=== PATIENT | male | born 1990 | race African-American/Black ===

== ENCOUNTER 2018-05-14 02:46 | Emergency (ER) | payer MEDICAID ==
[~2018-05-14] VITALS: Ht 185.4 cm; Wt 66.8 kg
[~2018-05-14 02:46] MED LIST: CLIN-96 PO
[2018-05-14 02:49] VITALS: BP 143/56
[2018-05-14] MEDS ORDERED: TETRACAINE 0.5% 5 ML OPHTHALMIC DROPS LEFTEYE ONE (03:00)
== END 2018-05-14 03:44 | disposition home or self-care (01) ==
LOC: ER 02:46
DX: H57.12 Ocular pain, left eye (principal); H53.8 Other visual disturbances; H57.89 Other specified disorders of eye and adnexa; H53.149 Visual discomfort, unspecified; R51 Headache; F12.90 Cannabis use, unspecified, uncomplicated; J45.909 Unspecified asthma, uncomplicated; F17.200 Nicotine dependence, unspecified, uncomplicated; Z79.899 Other long term (current) drug therapy
CPT/HCPCS: 99282

== ENCOUNTER 2018-06-24 07:07 | Emergency (ER) | payer MEDICAID ==
[~2018-06-24] VITALS: Ht 185.4 cm; Wt 49.0 kg
[2018-06-24 07:11] VITALS: BP 134/100
== END 2018-06-24 07:53 | disposition home or self-care (01) ==
LOC: ER 07:07
DX: M25.521 Pain in right elbow (principal); J45.909 Unspecified asthma, uncomplicated; F12.90 Cannabis use, unspecified, uncomplicated; Z79.899 Other long term (current) drug therapy
CPT/HCPCS: 99281

== ENCOUNTER 2019-10-24 11:38 | Emergency (ER) | payer MEDICAID, OTHER ==
[~2019-10-24] VITALS: Ht 185.4 cm; Wt 66.8 kg
[~2019-10-24 11:38] MED LIST changes: -CLIN-96 PO; +CLIN-97 PO
[2019-10-24 13:00] LABS: BASOPHILS # (AUTO) 0.1 X10'3 (0-0.2); BASOPHILS % (AUTO) 0.5 % (0-1); EOSINOPHILS % (AUTO) 0.3 % (0-6); HEMATOCRIT 44.2 % (42.0-52.0); HEMOGLOBIN 14.9 g/dl (14.0-17.9); LYMPHOCYTES # (AUTO) 1.5 X10'3 (1.1-4.8); MEAN CORPUSCULAR HEMOGLOBIN 34.6 PG (27.0-31.0); MEAN CORPUSCULAR HGB CONC 33.8 g/dL (33.0-36.5); MEAN CORPUSCULAR VOLUME 102.4 FL (78-98); MEAN PLATELET VOLUME 8.6 FL (7.4-10.4); MONOCYTES # (AUTO) 1.1 X10'3 (0-0.9); NEUTROPHILS # (AUTO) 9.8 X10'3 (1.8-7.7); NEUTROPHILS % (AUTO) 78.2 % (42-75); PLATELET COUNT 247 X10'3 (140-440); RED BLOOD COUNT 4.32 X10'6 (4.70-6.10); RED CELL DISTRIBUTION WIDTH 13.4 % (11.5-14.5); WHITE BLOOD COUNT 12.5 X10'3 (4.5-11.0)
[2019-10-24 13:20] LABS: ALANINE AMINOTRANSFERASE 30 U/L (12-78); ALBUMIN/GLOBULIN RATIO 1.1 (1.1-1.5); ALKALINE PHOSPHATASE 60 IU/L (46-116); ANION GAP 12 (8-16); ASPARTATE AMINO TRANSFERASE 32 U/L (10-37); BILIRUBIN,TOTAL 0.5 MG/DL (0.1-1.0); BLOOD UREA NITROGEN 10 MG/DL (7-18); BUN/CREATININE RATIO 14.3 (5.4-32.0); CALCIUM 9.2 MG/DL (8.5-10.1); CHLORIDE 104 MMOL/L (99-107); GLUCOSE 88 MG/DL (70-104); POTASSIUM 3.8 MMOL/L (3.5-5.1); SODIUM 140 MMOL/L (135-145); TOTAL CARBON DIOXIDE 24.5 MMOL/L (24-32); TOTAL PROTEIN 7.8 G/DL (6.4-8.2); eGFR > 90 ML/MIN
[2019-10-24] MEDS ORDERED: ondansetron/PF 4mg/2ml inj IV ONE (14:00)
[2019-10-24] MEDS ORDERED: morphine 4 MG/ML inj SYRINge IV ONE ×2 (14:00→19:30)
--- NOTE | 2019-10-24 17:09 | NUR ---
Called report to TIMOTEO Willis at [facility].
--- NOTE | 2019-10-24 17:21 | NUR ---
Pt able to have a few ice chips per EDI Champagne. Ice chips given. Let pt and his guard know that we have a bed at [facility], but that it is going to be a little bit before we are able to get transport there.
--- NOTE | 2019-10-24 18:41 | NUR ---
CALLED [facility], NOT CURRENTLY AT [facility]. WILL CALL BACK WITH ETA.
[2019-10-24 19:33] VITALS: BP 118/79
--- NOTE | 2019-10-24 19:50 | NUR ---
PATIENT REFUSED MEDICAL TRANSPORT. DID NOT WANT TO WAIT FOR [facility]. PATIENT TRANSPORTED BY [facility].
== END 2019-10-24 19:53 | disposition short-term general hospital (02) ==
LOC: ER 11:39
DX: S02.85XA Fracture of orbit, unspecified, initial encounter for closed fracture (principal); H57.12 Ocular pain, left eye; J45.909 Unspecified asthma, uncomplicated; F12.90 Cannabis use, unspecified, uncomplicated; Z72.89 Other problems related to lifestyle; Z79.899 Other long term (current) drug therapy; X58.XXXA Exposure to other specified factors, initial encounter; Y93.89 Activity, other specified; Y92.89 Other specified places as the place of occurrence of the external cause; Y99.8 Other external cause status
CPT/HCPCS: 36415; 70486; 80053; 85025; 96374; 96375; 96376; 99285; J2270; J2405; 99283; 99284

== ENCOUNTER 2019-11-19 12:03 | Emergency (ER) | payer OTHER ==
[~2019-11-19] VITALS: Ht 185.4 cm; Wt 66.8 kg
[2019-11-19] MEDS ORDERED: famotidine/PF 10 mg/ml inj IV ONE (12:10)
[2019-11-19] MEDS ORDERED: normal saline 1000ML IV soln IVB ONE (12:10)
[2019-11-19] MEDS ORDERED: ondansetron/PF 4mg/2ml inj IV ONE (12:10)
[2019-11-19 12:26] LABS: BASOPHILS # (AUTO) 0.1 X10'3 (0-0.2); BASOPHILS % (AUTO) 0.9 % (0-1); EOSINOPHILS # (AUTO) 0.5 X10'3 (0-0.9); EOSINOPHILS % (AUTO) 4.3 % (0-6); HEMATOCRIT 45.4 % (42.0-52.0); HEMOGLOBIN 15.5 g/dl (14.0-17.9); LYMPHOCYTES # (AUTO) 2.1 X10'3 (1.1-4.8); LYMPHOCYTES % (AUTO) 19.9 % (21-51); MEAN CORPUSCULAR HEMOGLOBIN 33.8 PG (27.0-31.0); MEAN CORPUSCULAR VOLUME 99.2 FL (78-98); MEAN PLATELET VOLUME 7.9 FL (7.4-10.4); MONOCYTES # (AUTO) 1.2 X10'3 (0-0.9); MONOCYTES % (AUTO) 11.6 % (2-12); NEUTROPHILS # (AUTO) 6.6 X10'3 (1.8-7.7); NEUTROPHILS % (AUTO) 63.3 % (42-75); PLATELET COUNT 301 X10'3 (140-440); RED BLOOD COUNT 4.58 X10'6 (4.70-6.10); RED CELL DISTRIBUTION WIDTH 12.7 % (11.5-14.5); WHITE BLOOD COUNT 10.5 X10'3 (4.5-11.0)
[2019-11-19 12:39] LABS: ALANINE AMINOTRANSFERASE 20 U/L (12-78); ALBUMIN/GLOBULIN RATIO 1.2 (1.1-1.5); ALKALINE PHOSPHATASE 53 IU/L (46-116); ANION GAP 8 (8-16); ASPARTATE AMINO TRANSFERASE 15 U/L (10-37); BILIRUBIN,TOTAL 0.7 MG/DL (0.1-1.0); BLOOD UREA NITROGEN 8 MG/DL (7-18); BUN/CREATININE RATIO 9.9 (5.4-32.0); CALCIUM 9.6 MG/DL (8.5-10.1); CHLORIDE 106 MMOL/L (99-107); CREATININE 0.81 MG/DL (0.60-1.10); ETHANOL < 0.010 GM/DL (0.0-0.010); GLUCOSE 89 MG/DL (70-104); LIPASE 185 U/L (73-393); POTASSIUM 3.9 MMOL/L (3.5-5.1); SODIUM 140 MMOL/L (135-145); TOTAL CARBON DIOXIDE 26.2 MMOL/L (24-32); TOTAL PROTEIN 7.3 G/DL (6.4-8.2); eGFR > 90 ML/MIN
[2019-11-19] MEDS ORDERED: ketorolac trometh. 30mg/ml inj. IV ONE (13:00)
[2019-11-19 13:45] VITALS: BP 122/78
== END 2019-11-19 13:41 ==
LOC: ER 12:03 → EEVIPCON 12:03 → ER 13:41
DX: K80.50 Calculus of bile duct without cholangitis or cholecystitis without obstruction (principal); R10.11 Right upper quadrant pain; J45.909 Unspecified asthma, uncomplicated; F12.90 Cannabis use, unspecified, uncomplicated; Z72.89 Other problems related to lifestyle; Z79.2 Long term (current) use of antibiotics
CPT/HCPCS: 36415; 76700; 80053; 80320; 83690; 85025; 96361; 96374; 96375; 99284; J1885; J2405; J3490; J7030

== ENCOUNTER → 2021-01-25 | Emergency (ER) | payer MEDICAID, OTHER ==
[~2021-01-25] VITALS: Ht 185.4 cm; Wt 66.8 kg
[~2021-01-25] MED LIST changes: +HYDR-3965 PO; +NAPR-56 PO; +PENI250T2 PO
[2021-01-25 08:47] VITALS: BP 124/76
== END | disposition home or self-care (01) ==
LOC: ER 08:44
DX: K04.7 Periapical abscess without sinus (principal); R22.0 Localized swelling, mass and lump, head; J45.909 Unspecified asthma, uncomplicated; F12.90 Cannabis use, unspecified, uncomplicated; Z72.89 Other problems related to lifestyle; Z79.2 Long term (current) use of antibiotics; Z79.899 Other long term (current) drug therapy
CPT/HCPCS: 99283

== ENCOUNTER 2021-03-29 07:29 | Emergency (ER) | payer MEDICAID ==
[~2021-03-29] VITALS: Ht 185.4 cm; Wt 70.0 kg
[~2021-03-29 07:29] MED LIST changes: -HYDR-3965 PO; -NAPR-56 PO; -PENI250T2 PO
[2021-03-29 07:32] VITALS: BP 132/70
[2021-03-29] MEDS ORDERED: acetaminophen 325mg tablet PO ONE (08:15)
[2021-03-29] MEDS ORDERED: ibuprofen tablet 400 MG TABLET PO ONE (08:15)
== END 2021-03-29 08:26 | disposition home or self-care (01) ==
LOC: ER 07:30
DX: R07.89 Other chest pain (principal); J45.909 Unspecified asthma, uncomplicated; F17.200 Nicotine dependence, unspecified, uncomplicated; F12.90 Cannabis use, unspecified, uncomplicated; Z72.89 Other problems related to lifestyle; Z79.2 Long term (current) use of antibiotics
CPT/HCPCS: 71045; 99283

== ENCOUNTER 2022-01-16 08:21 | Emergency (ER) | payer MEDICAID ==
[~2022-01-16] VITALS: Ht 185.4 cm; Wt 67.0 kg
[2022-01-16] MEDS ORDERED: PENI250T2 PO (09:49)
[2022-01-16] MEDS ORDERED: NAPR-56 PO (09:49)
[2022-01-16 09:55] VITALS: BP 146/74
== END 2022-01-16 09:57 | disposition home or self-care (01) ==
LOC: ER 08:22
DX: K04.7 Periapical abscess without sinus (principal); J45.909 Unspecified asthma, uncomplicated; F12.10 Cannabis abuse, uncomplicated; Z79.899 Other long term (current) drug therapy; Z79.2 Long term (current) use of antibiotics
CPT/HCPCS: 99283

== ENCOUNTER 2022-05-30 21:40 | Emergency (ER) | payer MEDICAID ==
[~2022-05-30] VITALS: Ht 185.4 cm; Wt 64.4 kg
[2022-05-30 21:45] VITALS: BP 144/91
[2022-05-30] MEDS ORDERED: orphenadrine citrate 60mg/2ml inj. IM ONE (22:35)
[2022-05-30] MEDS ORDERED: acetaminophen 325mg tablet PO ONE (22:35)
[2022-05-30] MEDS ORDERED: ORPH100T2 PO (22:40)
[2022-05-30] MEDS ORDERED: METH4TAB3 PO (22:40)
== END 2022-05-30 22:58 | disposition home or self-care (01) ==
LOC: ER 21:42
DX: S16.1XXA Strain of muscle, fascia and tendon at neck level, initial encounter (principal); J45.909 Unspecified asthma, uncomplicated; F12.90 Cannabis use, unspecified, uncomplicated; Z72.89 Other problems related to lifestyle; Z79.899 Other long term (current) drug therapy; X50.1XXA Overexertion from prolonged static or awkward postures, initial encounter; Y93.89 Activity, other specified; Y92.89 Other specified places as the place of occurrence of the external cause; Y99.8 Other external cause status
CPT/HCPCS: 96372; 99283; J2360

== ENCOUNTER 2022-12-15 07:01 | Emergency (ER) | payer MEDICAID ==
[~2022-12-15] VITALS: Ht 185.4 cm; Wt 66.8 kg
[~2022-12-15 07:01] MED LIST changes: +METH4TAB3 PO; +ORPH100T4 PO
[2022-12-15 07:04] VITALS: BP 109/76; PULSE 104; TEMP 97.1; O2SAT 100
[2022-12-15] MEDS ORDERED: amox tr/potassium clavulanate 875/125mg TAB PO ONE (07:20)
[2022-12-15] MEDS ORDERED: naproxen 500mg tablet PO ONE (07:20)
[2022-12-15] MEDS ORDERED: HYDROcodone/acetaminophen 10/325mg tab PO ONE (07:20)
[2022-12-15] MEDS ORDERED: NAPR-56 PO (07:25)
[2022-12-15] MEDS ORDERED: AMOX-117 PO (07:25)
[2022-12-15 07:27] VITALS: RESP 18
== END 2022-12-15 07:36 | disposition home or self-care (01) ==
LOC: ER 07:02
DX: K04.7 Periapical abscess without sinus (principal); K08.89 Other specified disorders of teeth and supporting structures; J45.909 Unspecified asthma, uncomplicated; F12.90 Cannabis use, unspecified, uncomplicated; Z79.2 Long term (current) use of antibiotics; Z79.899 Other long term (current) drug therapy
CPT/HCPCS: 99284